=== PATIENT | female | born 1965 | race Caucasian/White ===

== ENCOUNTER → 2020-06-13 15:25 | Outpatient (BNVA) | payer BC, SELFPAY | PROVIDERS: PCP Internal Medicine; Referring Provider Internal Medicine; Visit Provider Obstetrics & Gynecology | DX: Z76.89 Persons encountering health services in other specified circumstances (principal) ==

== ENCOUNTER 2021-07-03 14:41 | Outpatient (REF) | payer BC, SELFPAY ==
[2021-07-06 01:46] LABS: HPV mRNA E6/E7 Not Detected (Not Detected)
== END 2021-07-03 14:42 | disposition home or self-care (01) ==
LOC: HO.LAB 14:41
PROVIDERS: Visit Provider Advanced Practice Midwife
DX: Z01.419 Encounter for gynecological examination (general) (routine) without abnormal findings (principal); N89.8 Other specified noninflammatory disorders of vagina
CPT/HCPCS: 87624; 88142

== ENCOUNTER 2021-07-20 14:54 | Outpatient (REF) | payer BC, SELFPAY | END 2021-07-20 14:55 | disposition home or self-care (01) | LOC: HO.LAB 14:54 | PROVIDERS: Visit Provider Obstetrics & Gynecology | DX: N89.8 Other specified noninflammatory disorders of vagina (principal) | CPT/HCPCS: 57100; 88305 ==

== ENCOUNTER → 2021-08-03 14:58 | Outpatient (BNVA) | payer BC, SELFPAY | PROVIDERS: Visit Provider Obstetrics & Gynecology ==

== ENCOUNTER 2023-01-17 13:55 | Outpatient (AMB) | payer OTHER, SELFPAY ==
--- NOTE | 2023-01-17 13:56 | MHC.OFFVIS ---
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 Scribed for RENO Falcon by Chacha Chambers medical affairs director, on 01/17/2023 at 2:15 pm EST. Delicatessen Clerk: Delicatessen Clerk Present (Lavonne) Allergies ampicillin Allergy (Unknown, Verified 01/17/23 13:58) hives Post menopausal: No HPI HPI Comments History of Present Illness Details She is a postmenopausal woman presenting for annual exam. Doing well with no medical territory manager concerns. Patient admits she tries to eat a healthy diet including Calcium and Vitamin D. She stays active with exercise. Currently sexually active. Denies vaginal itching and irritation. Denies family hx of breast, colon and ovarian cancer. Last pap smear 07/03/21. Last mammogram 10/02/22. UTD on colonoscopy. [facility] Medical History History of anxiety Hypertension Surgical History History of section History of laparoscopy History of mandibular surgery Family History Father Heart disease FH: HTN (hypertension) Mother FH: HTN (hypertension) Social History Household Members: Spouse Household Members Other:: in home Alcohol intake: current Alcohol intake frequency: 0-2 drinks per day Patient Tobacco Use Status: Never used Tobacco Sexual orientation: Straight/Heterosexual Gender identity: Female Female Reproductive History Menstrual Menopause type: natural Total pregnancies: 2 Full term: 2 Number of Living Children: 2 Date of last pap smear: 07/03/21 (neg pap and hpv) Date of Mammogram: 10/02/22 Physical Exam Vital Signs: Last Vital Signs BP 102/60 01/17/23 13:58 BMI result Body Mass Index 24.0 Const General: cooperative, healthy appearing, no acute distress, well developed and alert Orientation/consciousness: patient oriented x3 HEENT Head: Yes normal to inspection Eyes General: appearance normal, both eyes and all related structures Neck Neck: Yes normal visual inspection Thyroid: Thyroid normal Chest Chest palpation & inspection: normal inspection of the chest Breast/axilla inspection: normal inspection of the breasts (no puckering, dimpling, peau de orange, retraction, discharge, masses) Breast/axilla palpation: normal palpation of the breasts Resp Effort & Inspection: normal respiratory effort GI Inspection: Yes normal to inspection Palpation (GI): Soft to palpation (to palpation) Rectal Exam - Female: deferred General: Yes bladder normal to inspection External Female Exam: normal external appearance and normal appearance of the urethra Speculum Exam - Vagina: normal appearance of the vagina, normal palpation and vagina atrophic Speculum Exam - Cervix: normal appearance of the cervix and normal palpation Bimanual exam- vagina & uterus: normal palpation and normal palpation Bimanual Exam- Adnexa, other: normal adnexae and no masses Skin General skin exam: no rashes or lesions noted Neuro General: patient oriented x3 Cognition (Neuro): normal cognition Extrem General: Yes normal to inspection Psych Attitude: cooperative Thought process: Normal thought process present Assessment & Plan Assessment & Plan (1) Encounter for well woman exam: Code(s): Z01.419 - Encounter for gynecological examination (general) (routine) without abnormal findings Plan: Discussed: Current recommendations for pap smears per ASCCP guidelines. Breast awareness and periodic self breast exams. Encouraged yearly mammograms. Maintaining a healthy lifestyle including a well balanced diet including Calcium and Vitamin D and routine exercise. Contact office with any PMB. Encouraged patient to sign up for patient portal. All of her questions and concerns were addressed to the best of my ability RTO in 1 year for AG. Coding Level of Care Code Est Pt Prev Care 40-64y(42615) Diagnoses Encounter for well woman exam Z01.419
[2023-01-17 13:58] VITALS: BP 102/60; BMI 24.0
== END 2023-01-17 14:30 | disposition home or self-care (01) ==
LOC: HO.HWS 13:56
PROVIDERS: Visit Provider Advanced Practice Midwife
DX: Z01.419 Encounter for gynecological examination (general) (routine) without abnormal findings (principal)
CPT/HCPCS: 99396

== ENCOUNTER → 2023-01-17 13:55 | Outpatient (BNVA) | payer OTHER, SELFPAY | PROVIDERS: Visit Provider Advanced Practice Midwife ==

== ENCOUNTER 2024-01-22 10:17 | Outpatient (AMB) | payer OTHER, SELFPAY ==
--- NOTE | 2024-01-22 10:20 | A.OFFVIS_ITS ---
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 She is doing well with no concerns. Attempting to eat a healthy diet with calcium and vitamin D and stays active with exercise. Currently sexually active. Reports occasional dryness. STI testing offered; she declines. Last pap smear; 2021. Last mammogram; 2023. Colonoscopy is scheduled later this year. Denies any family history of breast, ovarian or colon cancer. [facility] Medical History History of anxiety Hypertension Surgical History History of laparoscopy History of mandibular surgery History of section Family History Father Heart disease FH: HTN (hypertension) Mother FH: HTN (hypertension) Social History Household Members: Spouse Household Members Other:: in home Alcohol intake: current Alcohol intake frequency: 0-2 drinks per day Patient Tobacco Use Status: Never used Tobacco Sexual orientation: Straight/Heterosexual Gender identity: Female Female Reproductive History Menstrual Total pregnancies: 2 Full term: 2 Number of Living Children: 2 Date of last pap smear: 07/03/21 (neg pap and hpv) Date of Mammogram: 10/04/23 (Birad 1) Review of Systems Const All systems reviewed & are unremarkable except as noted in HPI and below Reports as per HPI Eyes Reports no additional complaints ENT Reports no additional complaints Card Reports no additional complaints Resp Reports no additional complaints GI Reports as per HPI and Reports no additional complaints Reports as per HPI Musc Reports no additional complaints Skin/Breast Reports as per HPI Neuro Reports no additional complaints Psych Reports no additional complaints Endo Reports no additional complaints Stalin/Lymph Reports no additional complaints Aller/Immun Reports no additional complaints Physical Exam Vital Signs: Last Vital Signs BP 108/70 01/22/24 10:21 BMI result Body Mass Index 25.0 Const General: cooperative, healthy appearing, no acute distress, well developed and alert Orientation/consciousness: patient oriented x3 HEENT Head: Yes normal to inspection Eyes General: appearance normal, both eyes and all related structures Neck Neck: Yes normal visual inspection Thyroid: Thyroid normal Chest Chest palpation & inspection: normal inspection of the chest and other (no puckering, dimpling, peau de orange, retraction, discharge, masses) Breast/axilla inspection: normal inspection of the breasts Breast/axilla palpation: normal palpation of the breasts Resp Effort & Inspection: normal respiratory effort GI Inspection: Yes normal to inspection Palpation (GI): Soft to palpation Rectal Exam - Female: deferred General: Yes bladder normal to palpation External Female Exam: normal external appearance and normal appearance of the urethra Speculum Exam - Vagina: normal appearance of the vagina, normal palpation, normal vaginal discharge and vagina atrophic Speculum Exam - Cervix: normal appearance of the cervix and normal palpation Bimanual exam- vagina & uterus: normal bimanual exam, normal palpation, uterine size normal, bladder normal to palpation, normal palpation and non-tender Bimanual Exam- Adnexa, other: no masses Skin General skin exam: no rashes or lesions noted Rashes: no rashes Neuro General: patient oriented x3 Cognition (Neuro): normal cognition Extrem General: Yes normal to inspection Psych Attitude: cooperative Thought process: Normal thought process present Assessment & Plan Assessment & Plan (1) Encounter for well woman exam with routine gynecological exam: Code(s): Z01.419 - Encounter for gynecological examination (general) (routine) without abnormal findings Category: Medical Plan Discussed: Current recommendations for pap smears per ASCCP guidelines. Breast awareness, periodic self breast exams and yearly mammogram. Maintain a healthy lifestyle, well balanced diet including Calcium 1,200 mg and Vitamin D 600 IU daily, and routine exercise. Contact the office with any postmenopausal bleeding. Replens moisturizer and lubrication. Patient verbalizes understanding and agrees to the plan of care. She was given opportunity to ask questions and all questions were answered to the best of my ability. RTO in 1 year for annual director of home economics exam. This note is constructed using voice recognition software. While every effort has been made to ensure accuracy, production support consultant errors may have been included. Coding Level of Care Code Est Pt Prev Care 40-64y(52710) Diagnoses Encounter for well woman exam with routine gynecological exam Z01.419
[2024-01-22 10:21] VITALS: BP 108/70; BMI 25.0
== END 2024-01-22 10:44 | disposition home or self-care (01) ==
PROVIDERS: Visit Provider Advanced Practice Midwife
DX: Z01.419 Encounter for gynecological examination (general) (routine) without abnormal findings (principal)
CPT/HCPCS: 99396

== ENCOUNTER → 2024-01-22 10:17 | Outpatient (BNVA) | payer OTHER, SELFPAY | PROVIDERS: Visit Provider Advanced Practice Midwife ==

== ENCOUNTER 2025-03-25 07:59 | Outpatient (AMB) | payer OTHER, SELFPAY ==
--- NOTE | 2025-03-25 08:01 | A.OFFVIS_ITS ---
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 Finishing Area Supervisor concerns: none. Currently sexually active. Denies any vaginal dryness or irritation. STI testing offered; she declines. Attempting to eat a healthy diet with calcium and vitamin D and stays active with exercise. Last pap smear; 2021, negative. Last mammogram; 2023- copy, patient reports was complete in 2024 copy not available today.. Colonoscopy is UTD. Denies any family history of breast, ovarian or colon cancer. [facility] Medical History History of anxiety Hypertension Surgical History History of laparoscopy History of mandibular surgery History of section Family History Father Heart disease FH: HTN (hypertension) Mother FH: HTN (hypertension) Social History Household Members: Spouse Household Members Other:: in home Alcohol intake: current Alcohol intake frequency: 0-2 drinks per day Patient Tobacco Use Status: Never used Tobacco Sexual orientation: Straight/Heterosexual Gender identity: Female Female Reproductive History Menstrual Total pregnancies: 2 Full term: 2 Number of Living Children: 2 Date of last pap smear: 07/03/21 (neg pap and hpv) Date of Mammogram: 10/04/23 (Birad 1) Review of Systems Const All systems reviewed & are unremarkable except as noted in HPI and below Reports as per HPI Eyes Reports no additional complaints ENT Reports no additional complaints Card Reports no additional complaints Resp Reports no additional complaints GI Reports as per HPI and Reports no additional complaints Reports as per HPI Musc Reports no additional complaints Skin/Breast Reports as per HPI Neuro Reports no additional complaints Psych Reports no additional complaints Endo Reports no additional complaints Stalin/Lymph Reports no additional complaints Aller/Immun Reports no additional complaints Physical Exam Vital Signs: Last Vital Signs BP 114/70 03/25/25 08:02 BMI result Body Mass Index 26.0 Const General: cooperative, healthy appearing, no acute distress, well developed and alert Orientation/consciousness: patient oriented x3 HEENT Head: Yes normal to inspection Eyes General: appearance normal, both eyes and all related structures Neck Neck: Yes normal visual inspection Thyroid: Thyroid normal Chest Chest palpation & inspection: normal inspection of the chest and other (no puckering, dimpling, peau de orange, retraction, discharge, masses) Breast/axilla inspection: normal inspection of the breasts Breast/axilla palpation: normal palpation of the breasts Resp Effort & Inspection: normal respiratory effort GI Inspection: Yes normal to inspection Palpation (GI): Soft to palpation Rectal Exam - Female: deferred General: Yes bladder normal to palpation External Female Exam: normal external appearance and normal appearance of the urethra Speculum Exam - Vagina: normal appearance of the vagina, normal palpation, normal vaginal discharge and vagina atrophic Speculum Exam - Cervix: normal appearance of the cervix and normal palpation Bimanual exam- vagina & uterus: normal bimanual exam, normal palpation, uterine size normal, bladder normal to palpation, normal palpation and non-tender Bimanual Exam- Adnexa, other: no masses Skin General skin exam: no rashes or lesions noted Rashes: no rashes Neuro General: patient oriented x3 Cognition (Neuro): normal cognition Extrem General: Yes normal to inspection Psych Attitude: cooperative Thought process: Normal thought process present Assessment & Plan Assessment & Plan (1) Encounter for well woman exam with routine gynecological exam: Code(s): Z01.419 - Encounter for gynecological examination (general) (routine) without abnormal findings Category: Medical Plan Discussed: Current recommendations for pap smears per ASCCP guidelines. Breast awareness, periodic self breast exams and yearly mammogram. Maintain a healthy lifestyle, well balanced diet including Calcium 1,200 mg and Vitamin D 600 IU daily, and routine exercise. Contact the office with any postmenopausal bleeding. Patient verbalizes understanding and agrees to the plan of care. She was given opportunity to ask questions and all questions were answered to the best of my ability. RTO in 1 year for annual information director exam. This note is constructed using voice recognition software. While every effort has been made to ensure accuracy, medical front desk specialist errors may have been included. Coding Level of Care Code Est Pt Prev Care 40-64y(43548) Diagnoses Encounter for well woman exam with routine gynecological exam Z01.419
--- OUTSIDE RECORDS SUMMARY | 2025-03-25 08:01 | XMS_ITS | Clinical Summary ---
Author Organization [facility] Address [address] [place] [address] Phone Care Team Providers Care Associate Professor Of Education Name Role Phone Anant Ba MD Primary Care Provider [phone] Allergies Active Allergy Reactions Criticality Noted Date Comments Ampicillin Hives Medium 05/25/2024 Medications hydroCHLOROthia zide (HYDRODIURIL) 25 mg tablet Take 1 tablet (25 mg total) by mouth 1 (one) time each day. Active sertraline (ZOLOFT) 100 mg tablet Take 1 tablet (100 mg total) by mouth 1 (one) time each day. Active calcium carbonate-vitam in D3 600 mg-25 mcg (1,000 unit) capsule Take 2 tablets by mouth 1 (one) time each day. Active Surgical History Surgery Date Site/Laterality Comments SECTION, LOW TRANSVERSE CYST REMOVAL JAW TEMPOROMANDIBULAR JOINT SURGERY Medical History Medical History Date Comments Hypertension Social History Tobacco Use Types Packs/Day Years Used Date Smoking Tobacco: Former Cigarettes Smokeless Tobacco: Never Tobacco Cessation:Counseling Given: Not Answered Alcohol Use Standard Drinks/Week Comments Not Asked 0 (1 standard drink = 0.6 oz pur e alcohol) OCCASSIONALLY Interpersonal Safety Answer Date Record ed Physical Abuse Unrecognized value 06/01/2024 Verbal Abuse Unrecognized value 06/01/2024 Comments No Sex and Gender Information Value Date Recorded Sex Assigned at Female 05/26/2024 1:57 PM EST Legal Sex Female 3:26 PM EST Gender Identity Female 05/26/2024 1:57 PM EST Sexual Orientation Straight 05/26/2024 1: 57 PM EST Obstetrics History Para Term AB IAB SAB Ectopic Multiple Livin g Live Births 2 Last Filed Vital Signs Vital Sign Reading Time Taken Comments Blood Pressure 123/97 06/01/2024 3:03 PM EST Pulse 73 06/01/2024 3:03 PM EST Temperature 36.3 C (97.3 F) 06/01/2024 2:00 PM EST Respiratory Rate 15 06/01/2024 3:03 PM EST Oxygen Saturation 100% 06/01/2024 3:03 PM EST Inhaled Oxygen Concentration - - Weight 56.7 kg (125 lb) 10/19/2024 2:34 PM EDT Height 154.9 cm (5' 1 ) 10/19/2024 2:34 PM EDT Body Mass Index 23.62 10/19/2024 2:34 PM EDT Plan of Treatment Health Maintenance Due Date Last Done Comments DTaP,Tdap,and Td Vaccines (1 - Tdap) 1982 Cervical Cancer Screening: Pap Smear 02/03/1984 Pneumococcal Vaccine: 50+ Years (1 of 1 - PCV) 2013 HIV Screening 05/23/2022 Hepatitis C Screening 05/23/2022 Social Influencers of Health Screening 05/23/2022 Depression Screening 06/24/2024 COVID-19 Vaccine ( season) 2025 05/21/2022, 05/09/2021, 10/01/2020 Breast Cancer Screening 10/19/2026 10/20/19, 10/04/2023, 10/05/2022, Additional history exists Colorectal Cancer Screening: Colonoscopy 06/01/2034 06/01/2024 RSV Immunization Adult Patients (1 - 1-dose 75+ series) 2038 Zoster Vaccines Completed 03/20/2019, 12/10/2018 Influenza Vaccine Completed 03/17/2025, , 03/04/2023, Additional history exists HIB Vaccines Aged Out No longer eligi ble based on patient's age to complete this topic HPV Vaccines Aged Out No longer eligi ble based on patient's age to complete this topic Hepatitis A Vaccines Aged Out No long er eligible based on patient's age to complete this topic Hepatitis B Vaccines Aged Out No long er eligible based on patient's age to complete this topic IPV Vaccines Aged Out No longer eligi ble based on patient's age to complete this topic MMR Vaccines Aged Out No longer eligi ble based on patient's age to complete this topic Meningococcal ACWY Vaccine Aged Out N o longer eligible based on patient's age to complete this topic Meningococcal B Vaccine Aged Out No l onger eligible based on patient's age to complete this topic RSV Immunization Patients Under 20 months Aged Out No longer eligible based on patient's age to complete this topic Varicella Vaccines Aged Out No longer eligible based on patient's age to complete this topic Procedures Procedure Name Priority Date/Time Associated Diagnosis Comments MG MAMMO DIGITAL SCREENING W GRAHAM BILAT Routine 10/19/2024 2:49 PM EDT Encounter for screening mammogram for malignant neoplasm of breast COLONOSCOPY Routine 06/01/2024 2:42 PM EST Encounter for screening for malignant neoplasm of colon from Last 3 Months or Most Recently Relevant to Health Maintenance Results * MG Mammo Digital Screening w Graham bilat (10/19/2024 2:49 PM EDT) Anatomical Region Laterality Modality Breast Bilateral Mammography 10/19/2024 4:15 PM EDT Impressions 10/19/2024 4:21 PM EDT No evidence of breast malignancy. BI-RADS CATEGORY: 1 - NEGATIVE RECOMMENDATION: Screening bilateral mammogram is recommended in 1 year. Mammo Location: [facility], [address] [place] [address], [id number], . -------- FINAL REPORT -------- Dictated By: Barb Williamson Dictated Date: 10/19/2024 16:15 ET Assigned Physician: Barb Williamson Reviewed and Electronically Signed By: Barb Williamson Signed Date: 10/19/2024 16:21 ET Workstation ID: [id number] Transcribed By: Self Edit Transcribed Date: 10/19/2024 16:15 ET Narrative 10/19/2024 4:21 PM EDT CLINICAL: 59 years old, Female, routine annual exam. COMPARISON: 10/04/2023, 10/02/2022, 08/24/2021, 08/15/2020 and 05/04/2019 TECHNIQUE: Bilateral MLO and CC views were obtained digitally with 3-D mammogram (digital breast tomosynthesis). Computer-aided detection was utilized in evaluation of this exam (CAD). FINDINGS: There is no evidence of suspicious mass or architectural distortion. No worrisome calcifications are evident. There has been no significant change from prior exam(s). BREAST DENSITY: B - There are scattered areas of fibroglandular density. Procedure Note Barb Williamson MD - 10/19/2024 CLINICAL: 59 years old, Female, routine annual exam. COMPARISON: 10/04/2023, 10/02/2022, 08/24/2021, 08/15/2020 and 05/04/2019 TECHNIQUE: Bilateral MLO and CC views were obtained digitally with 3-Dmammogram (digital breast tomosynthesis). Computer-aided detection wasutilized in evaluation of this exam (CAD). FINDINGS: There is no evidence of suspicious mass or architectural distortion. Noworrisome calcifications are evident. There has been no significantchange from prior exam(s). BREAST DENSITY: B - There are scattered areas of fibroglandular density. IMPRESSION: No evidence of breast malignancy. BI-RADS CATEGORY: 1 - NEGATIVE RECOMMENDATION: Screening bilateral mammogram is recommended in 1 year. Mammo Location: [facility], [address] [place] [address], [id number], . -------- FINAL REPORT -------- Dictated By: Barb Williamson Dictated Date: 10/19/2024 16:15 ET Assigned Physician: Barb Williamson Reviewed and Electronically Signed By: Barb Williamson Signed Date: 10/19/2024 16:21 ET Workstation ID: [id number] Transcribed By: Self Edit Transcribed Date: 10/19/2024 16:15 ET Anant RAMEY BI PROCEDURES Final Result * COLONOSCOPY Anesthesia - MAC; [facility] ENDOSCOPY (06/01/2024 2:42 PM EST) Anatomical Region Laterality Modality Endoscopy 06/01/2024 2:18 PM EST Impressions 06/01/2024 2:42 PM EST - The examined portion of the ileum was normal. - The entire examined colon is normal on direct and retroflexion views. - No specimens collected. Recommendation: - Repeat colonoscopy in 10 years for screening purposes. Narrative 06/01/2024 2:42 PM EST [facility] Patient Name: Nelsy Lockwood Procedure Date: 06/01/2024 2:18 PM Date of : 1965 Age: 59 Gender: Female Note Status: Finalized Attending MD: Rianna Rajput MD, Procedure Date No Time: 06/01/2024 Procedure: Colonoscopy Indications: Screening for colorectal malignant neoplasm Providers: Rianna Rajput MD Referring MD: Anant Ba MD Medicines: Propofol per Anesthesia Complications: No immediate complications. Estimated Blood Loss: Estimated blood loss: none. Procedure: Pre-Anesthesia Assessment: - ASA Grade Assessment: II - A patient with mild systemic disease. After I obtained informed consent, the scope was passed under direct vision. Throughout the procedure, the patient's blood pressure, pulse, and oxygen saturations were monitored continuously.The Colonoscope was introduced through the anus and advanced to the terminal ileum. The colonoscopy was performed without difficulty. The patient tolerated the procedure well. The quality of the bowel preparation was excellent. Findings: The perianal and digital rectal examinations were normal. The terminal ileum appeared normal. The entire examined colon appeared normal on direct and retroflexion views. Procedure Code(s): --- Professional --- G0121, Colorectal cancer screening; colonoscopy on individual not meeting criteria for high risk Diagnosis Code(s): --- Professional --- Z12.11, Encounter for screening for malignant neoplasm of colon CPT copyright 2020 [employer]. All rights reserved. The codes documented in this report are preliminary and upon child care worker review may be revised to meet current compliance requirements. Rianna Rajput MD 06/01/2024 2:42:22 PM This report has been signed electronically.Rianna Rajput MD Number of Addenda: 0 Note Initiated On: 06/01/2024 2:18 PM Scope In: Scope Out: Endoscopy Department at [facility] - [address] [place] [id number] Procedure Note Rianna Rajput MD - 06/01/2024 [facility] Patient Name: Nelsy Lockwood Procedure Date: 06/01/2024 2:18 PM Date of : 1965 Age: 59 Gender: Female Note Status: Finalized Attending MD: Rianna Rajput MD, Procedure Date No Time: 06/01/2024 Procedure: Colonoscopy Indications: Screening for colorectal malignant neoplasm Providers: Rianna Rajput MD Referring MD: Anant Ba MD Medicines: Propofol per Anesthesia Complications: No immediate complications. Estimated Blood Loss: Estimated blood loss: none. Procedure: Pre-Anesthesia Assessment: - ASA Grade Assessment: II - A patient with mild systemic disease. After I obtained informed consent, the scope was passed under direct vision. Throughout theprocedure, the patient's blood pressure, pulse, and oxygen saturations were monitored continuously.The Colonoscope was introduced through the anus and advanced to the terminal ileum. The colonoscopy was performed without difficulty. The patient tolerated the procedure well. The quality of the bowel preparation was excellent. Findings: The perianal and digital rectal examinations were normal. The terminal ileum appeared normal. The entire examined colon appeared normal on direct and retroflexion views. Procedure Code(s): --- Professional --- G0121, Colorectal cancer screening; colonoscopy on individual not meeting criteria for high risk Diagnosis Code(s): --- Professional --- Z12.11, Encounter for screening for malignantneoplasm of colon CPT copyright 2020 [employer]. All rights reserved. The codes documented in this report are preliminary and upon child care worker reviewmay be revised to meet current compliance requirements. Rianna Rajput MD 06/01/2024 2:42:22 PM This report has been signed electronically.Rianna Rajput MD Number of Addenda: 0 Note Initiated On: 06/01/2024 2:18 PM Scope In: Scope Out: Endoscopy Department at [facility] - [address] [place] [id number] IMPRESSION: - The examined portion of the ileum was normal. - The entire examined colon is normal on direct and retroflexion views. - No specimens collected. Recommendation: - Repeat colonoscopy in 10 years for screening purposes. Rianna Rajput MD GI~PROCEDURE ORDERABLES Final Result from Last 3 Months or Most Recently Relevant to Health Maintenance Insurance [facility] Care Teams Associate Professor Of Education Relationship Specialty Start Date End Date Anant Ba MD [address] [place] [address] PCP - General Internal Medicine 05/26/24
[2025-03-25 08:02] VITALS: BP 114/70; BMI 26.0
== END 2025-03-25 08:46 | disposition home or self-care (01) ==
LOC: HO.HWS 07:59
PROVIDERS: Visit Provider Advanced Practice Midwife
DX: Z01.419 Encounter for gynecological examination (general) (routine) without abnormal findings (principal)
CPT/HCPCS: 99396; 99459